=== PATIENT | female | born 1960 | race American Indian/Alaskan Native ===

== ENCOUNTER 2017-06-09 21:14 | Emergency (ER) | payer MEDICARE | END 2017-06-09 21:27 | disposition left against medical advice (07) | LOC: ED 21:14 | DX: R07.89 Other chest pain (principal); Z53.21 Procedure and treatment not carried out due to patient leaving prior to being seen by health care provider ==

== ENCOUNTER 2017-08-31 11:35 | Emergency (ER) | payer MEDICARE ==
[2017-08-31 12:02] VITALS: BP 148/89
[2017-08-31] MEDS ORDERED: ASPIRIN PO ONE (12:02)
[2017-08-31 12:54] LABS: Basophils % (Auto) 0.8 % (0.0-1.8); Eosinophils # (Auto) 0.1 K/mm3 (0.0-0.4); Eosinophils % (Auto) 1.8 % (0.0-4.3); Hemoglobin 11.1 gm/dl (10.1-14.3); Lymphocytes # (Auto) 2.4 K/mm3 (1.2-5.4); Lymphocytes % (Auto) 46.3 % (13.4-35.0); Mean Corpuscular HGB Conc 33 % (30-34); Mean Corpuscular Hemoglobin 25 pg (28-32); Mean Corpuscular Volume 76 fl (79-97); Monocytes # (Auto) 0.4 K/mm3 (0.0-0.8); Monocytes % (Auto) 7.1 % (0.0-7.3); Platelet Count 164 K/mm3 (140-440); Red Blood Count 4.47 M/mm3 (3.65-5.03); Red Cell Distribution Width 16.7 % (13.2-15.2)
[2017-08-31 13:06] LABS: Calcium 9.1 mg/dL (8.4-10.2)
--- NOTE | 2017-08-31 16:11 | Emergency Department Report ---
ED Chest Pain HPI - General Chief Complaint: Chest Pain Stated Complaint: CHEST PAIN Time Seen by Provider: 08/31/17 15:44 Source: patient Mode of arrival: Ambulatory Limitations: No Limitations - History of Present Illness Initial Comments: 56-year-old female with past medical history of cardio bypass, cardiac stent, hypertension, and CVA with residual right-sided deficits presents to the hospital with complaints of intermittent chest pain for the last 2-3 days. Pain is at the sternum and right side of chest. Reproducible with movement and palpation. Moderate in intensity. Patient states that she has not performed any heavy lifting but did recently change a bike tire. Patient has been off of blood pressure medicine since 2009 since BP has beeen running 140's systolic. Patient reported her BP prior to arrival was 220/130. Patient been feeling weak and fatigued lately and recently restarted his Synthroid thinking that would help. She denies calf tenderness, edema, leg asymmetry, recent travel, history of PE/DVT. Patient takes a baby aspirin 81 mg daily was seems to help her chest pain. She is also prescribed nitroglycerin when necessary has not taken any over the last couple days. 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 - Related Data Home Medications Medication Instructions Recorded Confirmed Last Taken Levothyroxine [Synthroid] 100 mcg PO QDAY 06/09/17 06/09/17 06/08/17 Allergies Allergy/AdvReac Type Severity Reaction Status Date / Time No Known Allergies Allergy Verified 06/09/17 07:18 Heart Score - HEART Score History: Slightly suspicious EKG: Non-specific Age: 45-65 Risk factors: > 3 risk factors or hx of atherosclerotic disease Troponin: > 3x normal limit HEART Score: 6 ED Review of Systems ROS: Stated complaint: CHEST PAIN Other details as noted in HPI Comment: All other systems reviewed and negative ED Past Medical Hx - Past Medical History Previous Medical History?: Yes Hx Hypertension: Yes Hx CVA: Yes (right side weakness) Hx Heart Attack/AMI: Yes (12 year ago) Additional medical history: hypothyroid - Surgical History Past Surgical History?: Yes Hx Coronary Stent: Yes Hx Open Heart Surgery: Yes Additional Surgical History: Quadruple bypass, - Social History Smoking Status: Never Smoker Substance Use Type: None - Medications Home Medications: Home Medications Medication Instructions Recorded Confirmed Last Taken Type Levothyroxine [Synthroid] 100 mcg PO QDAY 06/09/17 06/09/17 06/08/17 History ED Physical Exam - General Limitations: No Limitations - Other Other exam information: General: No limitations, patient is alert in no acute distress Head exam: Atraumatic, normocephalic Eyes exam: Normal appearance ENT: Moist mucous membrane, normal oropharynx Neck exam: Normal inspection, full range of motion, no meningismus nontender Respiratory exam: Clear to auscultation bilateral, no wheezes, rales, crackles Cardiovascular: Normal rate and rhythm, CABG scar. Reproducible sternal and right-sided upper chest wall tenderness Abdomen: Soft, nondistended, and nontender, with normal bowel sounds, no rebound, or guarding Extremity: Full range of motion normal inspection no deformity, no tenderness or edema Back: Normal Inspection, full range of motion, no tenderness Neurologic: Alert, oriented x3, cranial nerves intact, no motor or sensory deficit Psychiatric: normal affect, normal mood Skin: Warm, dry, intact ED Course Vital Signs 08/31/17 11:59 Temperature 97.5 F L Pulse Rate 64 Respiratory 20 Rate Blood Pressure 148/89 O2 Sat by Pulse 99 Oximetry - Consultations Consultation #1: 08/31/17 16:12 case d/w P Nelson jackie heart. agree admission is warranted. informed pt intends to s/o ama. will provided outpt appointment. 08/31/17 16:26 Zhen Damon came to speak to pt. apt given for thu the art 2:30pm JUAN score - Juan Score Age > 65: (0) No Aspirin use within the Past 7 Days: (1) Yes 3 or more CAD Risk Factors: (1) Yes 2 or more Angina events in past 24 hrs: (1) Yes Known CAD with more than 50% Stenosis: (1) Yes Elevated Cardiac Markers: (0) No ST Deviation Greater than 0.5mm: (0) No JUAN Score: 4 ED Medical Decision Making - Lab Data Result diagrams: 08/31/17 12:19 08/31/17 12:19 Lab Results 08/31/17 08/31/17 08/31/17 Range/Units 12:19 12:19 15:35 WBC 5.2 (4.5-11.0) K/mm3 RBC 4.47 (3.65-5.03) M/mm3 Hgb 11.1 (10.1-14.3) gm/dl Hct 34.0 (30.3-42.9) % MCV 76 L (79-97) fl MCH 25 L (28-32) pg MCHC 33 (30-34) % RDW 16.7 H (13.2-15.2) % Plt Count 164 (140-440) K/mm3 Lymph % (Auto) 46.3 H (13.4-35.0) % [place] % (Auto) 7.1 (0.0-7.3) % Eos % (Auto) 1.8 (0.0-4.3) % Baso % (Auto) 0.8 (0.0-1.8) % Lymph # 2.4 (1.2-5.4) K/mm3 [place] # 0.4 (0.0-0.8) K/mm3 Eos # 0.1 (0.0-0.4) K/mm3 Baso # 0.0 (0.0-0.1) K/mm3 Seg Neutrophils % 44.0 (40.0-70.0) % Seg Neutrophils # 2.3 (1.8-7.7) K/mm3 Sodium 141 (137-145) mmol/L Potassium 4.5 (3.6-5.0) mmol/L Chloride 103.9 (98-107) mmol/L Carbon Dioxide 28 (22-30) mmol/L Anion Gap 14 mmol/L BUN 21 H (7-17) mg/dL Creatinine 1.2 (0.7-1.2) mg/dL Estimated GFR 57 ml/min BUN/Creatinine Ratio 18 % Glucose 96 (65-100) mg/dL Calcium 9.1 (8.4-10.2) mg/dL Troponin T 0.013 < 0.010 (0.00-0.029) ng/mL - EKG Data -: EKG Interpreted by Me (anterolateral infarct, inferior infarct) EKG shows normal: sinus rhythm, axis (qrs 12), QRS complexes (101), ST-T waves ( lat tinv) Rate: bradycardia (58) - EKG Data When compared to previous EKG there are: no significant change - Radiology Data Radiology results: image reviewed (cxr: naf read by me) - Medical Decision Making Chest pain Reproducible likely musculoskeletal in origin, however patient's significant cardiac history, risk factors, and no reliable follow-up. Patient will be signing out AGAINST MEDICAL ADVICE today. I explained that I cannot fully say her heart is okay without at least a stress test. It is encouraging a patient has unchanged EKG and negative cardiac enzymes. She was seen by cardiology and a follow-up referral appointment scheduled in 2 days. htn - Differential Diagnosis costochondritis, muscle strain, PE, MD, possible angina Critical Care Time: No Critical care attestation.: If time is entered above; I have spent that time in minutes in the direct care of this critically ill patient, excluding procedure time. ED Disposition Clinical Impression: Chest wall tenderness, Hx of CABG Disposition: OP ADMIT IP TO THIS HOSP Is pt being admited?: No Does the pt Need Aspirin: No Condition: Stable Instructions: Chest Pain (ED) Additional Instructions: Admission was recommended for stress testing to further evaluate heart. You are signing out AGAINST MEDICAL ADVICE because I am unable to rule out Worsening heart disease that can lead to heart attack and sudden . Please follow-up with the machine veneer repairer as scheduled on the night. Please return to the ER if symptoms worsen as indicated on your discharge instructions Referrals: DENISE ARAIZA MD [Staff Physician] - 09/02/17 2:30 pm (machine veneer repairer) YAMINI JOHNSON MD [Staff Physician] - 3-5 Days (Primary care doctor) [facility] [Provider Group] - 3-5 Days (Primary care clinic) Forms: AMA Form Time of Disposition: 16:40
--- NOTE | 2017-08-31 19:02 | XRay Report ---
FINAL REPORT PROCEDURE: XR CHEST ROUTINE 2V TECHNIQUE: PA and lateral chest radiographs were obtained. CPT 43114 HISTORY: Chest pain. COMPARISON: No prior studies are available for comparison. FINDINGS: Heart: Mild cardiomegaly. Mediastinum/Vessels: Aortic tortuosity. Lungs/Pleural space: Normal. Bony thorax: Sternotomy. Mild multilevel degenerative changes of spine. Other: IMPRESSION: Mild cardiomegaly. Aortic tortuosity. No radiographic evidence of acute cardiopulmonary disease.
== END 2017-08-31 17:02 | disposition left against medical advice (07) ==
LOC: ED 11:35
DX: R07.89 Other chest pain (principal); I25.2 Old myocardial infarction; I10 Essential (primary) hypertension; Z86.73 Personal history of transient ischemic attack (TIA), and cerebral infarction without residual deficits; Z95.1 Presence of aortocoronary bypass graft
CPT/HCPCS: 36415; 71046; 80048; 84484; 85025; 93005; 93010; 99284

== ENCOUNTER 2020-10-19 08:09 | Observation (INO) | payer MEDICARE ==
[2020-10-19] MEDS ORDERED: NITROGLYCERIN 2% OINT 1 GM TP ONE (09:05)
[2020-10-19] MEDS ORDERED: fentaNYL 100 MCG/2 ML INJ IV ONE (09:05)
[2020-10-19] MEDS ORDERED: ONDANSETRON 4 MG/2 ML INJ IV ONE (09:05)
[2020-10-19] MEDS ORDERED: ASPIRIN 325 MG TAB PO ONE (09:06)
--- NOTE | 2020-10-19 09:11 | Emergency Department Report ---
HPI - General Chief Complaint: Chest Pain Time Seen by Provider: 10/19/20 08:51 - HPI HPI: Room 2 The patient is a 59-year-old female present with a chief complaint of chest pain. Patient states for the past 2 days she is substernal/right-sided chest p ressure that has been constant in nature associated with shortness of breath, nausea/vomiting and diaphoresis. Patient states she has noticed swelling to both feet and she admits to orthopnea for 2 days. Patient currently gets her chest pressure score of 8/10. Patient states her last stress test and cardiac catheterization occurred approximate 1 year ago. Patient states she was told she had some type of blockage 1 year ago ED Past Medical Hx - Past Medical History Hx Hypertension: Yes (Not taking meds/lisinopril) Hx CVA: Yes (2006) Hx Heart Attack/AMI: Yes (12 year ago; 7 ID's) Additional medical history: hypothyroid - Surgical History Hx Coronary Stent: Yes Hx Open Heart Surgery: Yes Additional Surgical History: Quadruple bypass, 2 heart stents - Family History Family history: no significant - Social History Smoking Status: Never Smoker Substance Use Type: None (Denies illicit drug use) - Medications Home Medications: Home Medications Medication Instructions Recorded Confirmed Last Taken Type Levothyroxine [Synthroid] 100 mcg PO QDAY 06/09/17 06/09/17 06/08/17 History ED Review of Systems ROS: Stated complaint: chest pains Other details as noted in HPI Constitutional: diaphoresis Eyes: denies: eye pain ENT: denies: throat pain Respiratory: shortness of breath Cardiovascular: chest pain, palpitations Endocrine: no symptoms reported Gastrointestinal: nausea, vomiting Genitourinary: denies: dysuria Musculoskeletal: denies: back pain Neurological: denies: headache Physical Exam - Physical Exam Vital Signs: Vital Signs 10/19/20 08:27 Temperature 98.2 F Pulse Rate 65 Respiratory 18 Rate Blood Pressure 172/110 [Left] O2 Sat by Pulse 100 Oximetry Physical Exam: GENERAL: The patient is well-developed well-nourished female lying on stretcher not appearing to be in acute distress. [] HEENT: Normocephalic. Atraumatic. Extraocular motions are intact. Patient has moist mucous membranes. NECK: Supple. Trachea midline CHEST/LUNGS: Clear to auscultation. There is no respiratory distress noted. HEART/CARDIOVASCULAR: Regular. There is no tachycardia. There is no gallop rub or murmur. ABDOMEN: Abdomen is soft, nontender. Patient has normal bowel sounds. There is no abdominal distention. SKIN: There is no rash. There is no pitting peripheral edema appreciated. Ther e is no diaphoresis. NEURO: The patient is awake, alert, and oriented. The patient is cooperative. The patient has no focal neurologic deficits. The patient has normal speech MUSCULOSKELETAL: There is no evidence of acute injury. ED Course Vital Signs 10/19/20 08:27 Temperature 98.2 F Pulse Rate 65 Respiratory 18 Rate Blood Pressure 172/110 [Left] O2 Sat by Pulse 100 Oximetry ED Medical Decision Making - Lab Data Result diagrams: 10/19/20 09:07 10/19/20 09:07 - EKG Data -: EKG Interpreted by Me EKG shows normal: sinus rhythm Rate: normal - EKG Data When compared to previous EKG there are: no significant change Interpretation: unchanged when compared t (08/31/2017) - Radiology Data Radiology results: report reviewed (Chest x-ray), image reviewed (Chest x-ray) interpreted by me: Chest [id number]. No focal infiltrate, no pneumothorax [facility] [address] [place] [address] XRay Report Signed Patient: JESUS CAMERON MR#: [id number] : 1960 Acct:[id number] Age/Sex: 59 / F ADM Date: 10/19/20 Loc: ED Attending Dr: Ordering Physician: ELIZABETH WING MD Date of Service: 10/19/20 Procedure(s): XR chest 1V ap Accession Number(s): [id number] cc: ELIZABETH WING MD Fluoro Time In Minutes: CHEST 1 VIEW INDICATION: chest pain. COMPARISON: 06/09/2017 FINDINGS: Support devices: None. Heart: Cardiomegaly is noted. There has been prior sternotomy. Lungs/Pleura: No acute pulmonary or pleural findings. IMPRESSION: 1. No acute pulmonary or pleural findings. 2. Enlargement of the cardiac silhouette, this is new since the prior CT from 06/09/2017. Signer Name: Uriah Pimentel MD Signed: 10/19/2020 9:44 AM Workstation Name: [id number] Transcribed By: KEITH Dictated By: Uriah Pimentel MD Electronically Authenticated By: Uriah Pimentel MD Signed Date/Time: 10/19/20943 DD/ 1 TD/TT: Print Cancel - Differential Diagnosis ACS, pericarditis, GERD, CHF exacerbation Critical care attestation.: If time is entered above; I have spent that time in minutes in the direct care of this critically ill patient, excluding procedure time. ED Disposition Clinical Impression: Chest pain, CHF (congestive heart failure) Disposition: OP ADMIT IP TO THIS HOSP Is pt being admited?: Yes Does the pt Need Aspirin: Yes Condition: Fair Instructions: Nonspecific Chest Pain, Adult Time of Disposition: 10:15 (Hospitalist paged (Dr Becerra)) Heart Score - HEART Score History: Moderately suspicious EKG: Non-specific Age: 45-65 Risk factors: 1-2 risk factors Troponin: < normal limit HEART Score: 4 - EKG Read Time Time EKG Completed: 08:19 EKG Read Time: 08:24
[2020-10-19 09:26] LABS: Basophils % (Auto) 0.9 % (0.0-1.8); Eosinophils # (Auto) 0.1 K/mm3 (0.0-0.4); Eosinophils % (Auto) 1.4 % (0.0-4.3); Hematocrit 39.3 % (30.3-42.9); Hemoglobin 12.9 gm/dl (10.1-14.3); Lymphocytes # (Auto) 1.5 K/mm3 (1.2-5.4); Lymphocytes % (Auto) 29.8 % (13.4-35.0); Mean Corpuscular HGB Conc 33 % (30-34); Mean Corpuscular Volume 79 fl (79-97); Monocytes # (Auto) 0.4 K/mm3 (0.0-0.8); Monocytes % (Auto) 8.1 % (0.0-7.3); Platelet Count 215 K/mm3 (140-440); Red Cell Distribution Width 17.3 % (13.2-15.2)
[2020-10-19 09:48] LABS: INR 1.21 (0.87-1.13)
--- NOTE | 2020-10-19 09:48 | XRay Report ---
CHEST 1 VIEW INDICATION: chest pain. COMPARISON: 06/09/2017 FINDINGS: Support devices: None. Heart: Cardiomegaly is noted. There has been prior sternotomy. Lungs/Pleura: No acute pulmonary or pleural findings. IMPRESSION: 1. No acute pulmonary or pleural findings. 2. Enlargement of the cardiac silhouette, this is new since the prior CT from 06/09/2017. Signer Name: Uriah Pimentel MD Signed: 10/19/2020 9:44 AM Workstation Name: [id number]
[2020-10-19 09:49] LABS: Partial Thromboplastin Time 25.6 Sec. (24.2-36.6)
[2020-10-19 10:13] LABS: Calcium 9.1 mg/dL (8.4-10.2); Creatine Kinase MB 6.2 ng/mL (0.0-4.0)
[2020-10-19] MEDS ORDERED: FUROSEMIDE 40 MG/4 ML INJ IV ONE (10:15)
[2020-10-19 10:22] LABS: Free T4 (Free Thyroxine) 0.85 ng/dL (0.76-1.46)
[2020-10-19] MEDS ORDERED: hydrALAZINE 20 MG/1 ML INJ IV PRN (11:25)
--- NOTE | 2020-10-19 11:30 | History and Physical Report ---
History of Present Illness Date of examination: 10/19/20 Date of admission: 10/19/20 10:18 Chief complaint: Chest pain shortness of breath History of present illness: 59-year-old female with past medical history of hypertension, CVA, history of heart attack and hypothyroidism was brought to the emergency room because of chest pain for the past 2 days which is substernal/right-sided chest pressure that has been constant in nature associated with shortness of breath, nausea/vomiting and diaphoresis. Patient states she has noticed swelling to both feet and she admits to orthopnea for 2 days. Patient currently gets her chest pressure score of 8/10. Patient states her last stress test and cardiac catheterization occurred approximate 1 year ago. Patient states she was told she had some type of blockage 1 year ago Past History Past Medical History: acute SC, hypertension, hypothyroidism, stroke Medications and Allergies Allergies Allergy/AdvReac Type Severity Reaction Status Date / Time No Known Allergies Allergy Verified 06/09/17 07:18 Home Medications Medication Instructions Recorded Confirmed Last Taken Type Levothyroxine [Synthroid] 100 mcg PO QDAY 06/09/17 06/09/17 06/08/17 History Review of Systems Cardiovascular: chest pain, orthopnea, edema, shortness of breath, dyspnea on exertion Respiratory: shortness of breath, dyspnea on exertion Exam - Constitutional Vitals: Temp Pulse Resp BP Pulse Ox 98.2 F 93 H 14 173/119 94 10/19/20 08:27 10/19/20 11:17 10/19/20 11:17 10/19/20 11:17 10/19/20 11:17 General appearance: Present: no acute distress, well-nourished - EENT Eyes: Present: PERRL ENT: hearing intact, clear oral mucosa - Neck Neck: Present: supple, normal ROM - Respiratory Respiratory effort: normal Respiratory: bilateral: rales - Cardiovascular Heart Sounds: Present: S1 & S2. Absent: rub, click - Extremities Extremities: pulses symmetrical Extremity abnormal: edema Peripheral Pulses: within normal limits - Abdominal General gastrointestinal: Present: soft, non-tender, non-distended, normal bowel sounds Female genitourinary: Present: normal - Integumentary Integumentary: Present: clear, warm, dry - Musculoskeletal Musculoskeletal: gait normal, strength equal bilaterally - Psychiatric Psychiatric: appropriate mood/affect, intact judgment & insight - Neurologic Neurologic: CNII-XII intact, moves all extremities HEART Score - HEART Score EKG: Non-specific Age: 45-65 Risk factors: 1-2 risk factors Troponin: Troponin T 0.018 ng/mL (0.00-0.029) 10/19/20 09:07 Troponin: < normal limit Results - Labs CBC & Chem 7: 10/19/20 09:07 10/19/20 09:07 Labs: Laboratory Last Values WBC 4.9 K/mm3 (4.5-11.0) 10/19/20 09:07 RBC 5.00 M/mm3 (3.65-5.03) 10/19/20 09:07 Hgb 12.9 gm/dl (10.1-14.3) 10/19/20 09:07 Hct 39.3 % (30.3-42.9) 10/19/20 09:07 MCV 79 fl (79-97) 10/19/20 09:07 MCH 26 pg (28-32) L 10/19/20 09:07 MCHC 33 % (30-34) 10/19/20 09:07 RDW 17.3 % (13.2-15.2) H 10/19/20 09:07 Plt Count 215 K/mm3 (140-440) 10/19/20 09:07 Lymph % (Auto) 29.8 % (13.4-35.0) 10/19/20 09:07 [place] % (Auto) 8.1 % (0.0-7.3) H 10/19/20 09:07 Eos % (Auto) 1.4 % (0.0-4.3) 10/19/20 09:07 Baso % (Auto) 0.9 % (0.0-1.8) 10/19/20 09:07 Lymph # (Auto) 1.5 K/mm3 (1.2-5.4) 10/19/20 09:07 [place] # (Auto) 0.4 K/mm3 (0.0-0.8) 10/19/20 09:07 Eos # (Auto) 0.1 K/mm3 (0.0-0.4) 10/19/20 09:07 Baso # (Auto) 0.0 K/mm3 (0.0-0.1) 10/19/20 09:07 Seg Neutrophils % 59.8 % (40.0-70.0) 10/19/20 09:07 Seg Neutrophils # 3.0 K/mm3 (1.8-7.7) 10/19/20 09:07 PT 15.9 Sec. (12.2-14.9) H 10/19/20 09:07 INR 1.21 (0.87-1.13) H 10/19/20 09:07 APTT 25.6 Sec. (24.2-36.6) 10/19/20 09:07 Sodium 139 mmol/L (137-145) 10/19/20 09:07 Potassium 4.0 mmol/L (3.6-5.0) 10/19/20 09:07 Chloride 104.0 mmol/L (98-107) 10/19/20 09:07 Carbon Dioxide 23 mmol/L (22-30) 10/19/20 09:07 Anion Gap 16 mmol/L 10/19/20 09:07 BUN 20 mg/dL (7-17) H 10/19/20 09:07 Creatinine 1.3 mg/dL (0.6-1.2) H 10/19/20 09:07 Estimated GFR 51 ml/min 10/19/20 09:07 BUN/Creatinine Ratio 15 % 10/19/20 09:07 Glucose 121 mg/dL (65-100) H 10/19/20 09:07 Calcium 9.1 mg/dL (8.4-10.2) 10/19/20 09:07 Total Creatine Kinase 219 units/L (30-135) H 10/19/20 09:07 CK-MB (CK-2) 6.2 ng/mL (0.0-4.0) H 10/19/20 09:07 CK-MB (CK-2) Rel Index 2.8 (0-4) 10/19/20 09:07 Troponin T 0.018 ng/mL (0.00-0.029) 10/19/20 09:07 NT-Pro-B Natriuret Pep 4381 pg/mL (0-900) H 10/19/20 09:07 TSH 44.800 mlU/mL (0.270-4.200) H 10/19/20 09:07 Free T4 0.85 ng/dL (0.76-1.46) 10/19/20 09:07 - Imaging and Cardiology Chest x-ray: report reviewed Assessment and Plan VTE prophylaxis?: Chemical Plan of care discussed with patient/family: Yes - Patient Problems (1) CHF (congestive heart failure) Current Visit: Yes Status: Acute Plan to address problem: Admit the patient to the medical floor telemetry. Put the patient on CHF pathway. Cardiac diet. Lasix 40 mg IV every 12 hours. Fluid restriction. Maintain intake output. Echocardiogram. Consult cardiology (2) Chest pain Current Visit: Yes Status: Acute Plan to address problem: Aspirin 325 mg p.o. daily. Lipitor 40 mg p.o. daily. Nitroglycerin as needed. Lipid panel. we will do the serial cardiac enzyme. Echocardiogram. Consult cardiology for further evaluation and treatment. (3) Hypertension Current Visit: Yes Status: Acute Plan to address problem: Lisinopril 2.5 mg p.o. daily. Hydralazine 10 mg IV every 6 hours as needed. Monitor the blood pressure closely (4) CVA (cerebral vascular accident) Current Visit: Yes Status: Acute Plan to address problem: Stable. We will continue aspirin 325 mg p.o. daily. Lipitor 40 mg p.o. daily. (5) Coronary artery disease Current Visit: Yes Status: Acute Plan to address problem: Aspirin 325 mg p.o. daily. Lipitor 40 mg p.o. daily. Echocardiogram. Will consult cardiology for evaluation and treatment (6) Hypothyroidism Current Visit: Yes Status: Acute Plan to address problem: Synthroid 100 mcg p.o. daily. Outpatient follow-up with endocrinology (7) DVT prophylaxis Current Visit: Yes Status: Acute Plan to address problem: Heparin 5000 units subcu every 8 hours for DVT prophylaxis. Protonix 40 mg p.o. daily for GI prophylaxis. Patient is a full code
[2020-10-19] MEDS ORDERED: NITROGLYCERIN 0.4 MG TAB SUBL SL PRN (11:34)
[2020-10-19] MEDS ORDERED: ACETAMINOPHEN 325 MG TAB PO PRN (11:34)
[2020-10-19 15:20] LABS: Basophils # (Auto) 0.1 K/mm3 (0.0-0.1); Basophils % (Auto) 1.6 % (0.0-1.8); Eosinophils # (Auto) 0.1 K/mm3 (0.0-0.4); Eosinophils % (Auto) 1.8 % (0.0-4.3); Hematocrit 39.5 % (30.3-42.9); Lymphocytes # (Auto) 2.1 K/mm3 (1.2-5.4); Lymphocytes % (Auto) 38.3 % (13.4-35.0); Mean Corpuscular HGB Conc 33 % (30-34); Mean Corpuscular Volume 78 fl (79-97); Monocytes # (Auto) 0.4 K/mm3 (0.0-0.8); Monocytes % (Auto) 7.9 % (0.0-7.3); Platelet Count 203 K/mm3 (140-440); Red Blood Count 5.05 M/mm3 (3.65-5.03); Red Cell Distribution Width 17.6 % (13.2-15.2)
[2020-10-19] MEDS: HEPARIN 5,000 UNIT/1 ML VIAL SUB-Q SCH ×2 (15:34→21:41)
[2020-10-19 15:46] LABS: Calcium 9.3 mg/dL (8.4-10.2); Chol/HDL Ratio 4.73 %
[2020-10-19] MEDS: FUROSEMIDE 40 MG/4 ML INJ IV SCH (17:05)
--- NOTE | 2020-10-19 18:15 | Electrocardiograph Report ---
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
[2020-10-19] MEDS: traMADol 50 MG TAB PO PRN (18:51)
[2020-10-20] MEDS: LEVOTHYROXINE 100 MCG TAB PO SCH (05:09)
[2020-10-20] MEDS: HEPARIN 5,000 UNIT/1 ML VIAL SUB-Q SCH ×3 (05:10→22:47)
[2020-10-20] MEDS: FUROSEMIDE 40 MG/4 ML INJ IV SCH ×3 (05:28→17:20)
[2020-10-20] MEDS: ASPIRIN EC 325 MG TAB PO SCH (10:33)
[2020-10-20] MEDS: LISINOPRIL 5 MG TAB PO SCH (10:33)
[2020-10-20] MEDS: PANTOPRAZOLE 40 MG TAB PO SCH (10:33)
--- NOTE | 2020-10-20 11:38 | Consultation ---
History of Present Illness Consult date: 10/20/20 Consult reason: chest pain History of present illness: 59-year-old female with past medical history of CAD s/p CABG, ischemic cardiomypoathy, hypertension, CVA, and hypothyroidism was brought to the emergency room because of chest pain for the past 2 days which is substernal/right-sided chest pressure that has been constant in nature associate d with shortness of breath, nausea/vomiting and diaphoresis. Patient states she has noticed swelling to both feet and she admits to orthopnea for 2 days. Patient reports she had not been compliant with her outpatient prescribed cardiac medications. Her BNP level was elevated but chest Xray is not suggestive of decompensated CHF. Troponins have been unremarkable. ECG reveals SR with prior anterior IN Echocardiogram done yesterday revealed EF of 15%. [facility] 11/11/19 revealed severe [place] vessel CAD with patent CRISTOBAL to LAD with diffuse distal LAD disease, patent HYMAN to OM with 100% occulsion of OM distal to graft, patent radial grafts to PDA and diagonal. Medical therapy was recommended at that time. Past History Past Medical History: acute IN, hypertension, hypothyroidism, stroke Past Surgical History: CABG Social history: denies: smoking Family history: hypertension Medications and Allergies Allergies Allergy/AdvReac Type Severity Reaction Status Date / Time No Known Allergies Allergy Verified 06/09/17 07:18 Home Medications Medication Instructions Recorded Confirmed Last Taken Type Levothyroxine [Synthroid] 100 mcg PO QDAY 06/09/17 10/19/20 06/08/17 History Aspirin [Aspirin BABY CHEW TAB] 81 mg PO DAILY 10/19/20 10/19/20 Unknown History Lisinopril [Zestril TAB] 2.5 mg PO QDAY 10/19/20 10/19/20 Unknown History Active Meds: Active Medications Acetaminophen (Acetaminophen 325 Mg Tab) 650 mg PO Q6H PRN PRN Reason: Pain, Mild (1-3) Aspirin (Aspirin Ec 325 Mg Tab) 325 mg PO QDAY [facility] Last Admin: 10/20/20 10:33 Dose: 325 mg Documented by: Atorvastatin Calcium (Atorvastatin 40 Mg Tab) 40 mg PO QHS [facility] Last Admin: 10/19/20 21:41 Dose: 40 mg Documented by: Furosemide (Furosemide 40 Mg/4 Ml Inj) 40 mg IV BID@0600,1800 [facility] Last Admin: 10/20/20 05:28 Dose: Not Given Documented by: Heparin Sodium (Porcine) (Heparin 5,000 Unit/1 Ml Vial) 5,000 unit SUB-Q Q8HR [facility] Last Admin: 10/20/20 05:10 Dose: 5,000 unit Documented by: Hydralazine HCl (Hydralazine 20 Mg/1 Ml Inj) 10 mg IV Q6H PRN PRN Reason: htn Levothyroxine Sodium (Levothyroxine 100 Mcg Tab) 100 mcg PO DAILY@0600 [facility] Last Admin: 10/20/20 05:09 Dose: 100 mcg Documented by: Lisinopril (Lisinopril 5 Mg Tab) 2.5 mg PO QDAY [facility] Last Admin: 10/20/20 10:33 Dose: 2.5 mg Documented by: Nitroglycerin (Nitroglycerin 0.4 Mg Tab Subl) 0.4 mg SL Q5M PRN PRN Reason: Chest Pain Pantoprazole Sodium (Pantoprazole 40 Mg Tab) 40 mg PO QDAC [facility] Last Admin: 10/20/20 10:33 Dose: 40 mg Documented by: Sodium Chloride (Sodium Chloride 0.9% 10 Ml Flush Syringe) 10 ml IV PRN PRN PRN Reason: LINE FLUSH Tramadol HCl (Tramadol 50 Mg Tab) 50 mg PO Q6H PRN PRN Reason: Pain, Moderate (4-6) Last Admin: 10/19/20 18:51 Dose: 50 mg Documented by: Review of Systems All systems: negative (per hpi) Physical Examination Vital Signs Temp Pulse Resp BP Pulse Ox 98.2 F 65 18 172/110 100 10/19/20 08:27 10/19/20 08:27 10/19/20 08:27 10/19/20 08:27 10/19/20 08:27 General appearance: no acute distress Neck: Positive: neck supple Cardiac: Positive: Reg Rate and Rhythm Lungs: Positive: Decreased Breath Sounds Results 10/19/20 14:43 10/19/20 14:43 Lipids 10/19/20 Range/Units 14:43 Triglycerides 62 (2-149) mg/dL Cholesterol 194 (50-199) mg/dL HDL Cholesterol 41 (40-59) mg/dL Cholesterol/HDL Ratio 4.73 % CBC 10/19/20 Range/Units 14:43 WBC 5.5 (4.5-11.0) K/mm3 RBC 5.05 H (3.65-5.03) M/mm3 Hgb 13.0 (10.1-14.3) gm/dl Hct 39.5 (30.3-42.9) % Plt Count 203 (140-440) K/mm3 Lymph # (Auto) 2.1 (1.2-5.4) K/mm3 [place] # (Auto) 0.4 (0.0-0.8) K/mm3 Eos # (Auto) 0.1 (0.0-0.4) K/mm3 Baso # (Auto) 0.1 (0.0-0.1) K/mm3 Comprehensive Metabolic Panel 10/19/20 Range/Units 14:43 Sodium 142 (137-145) mmol/L Potassium 3.9 (3.6-5.0) mmol/L Chloride 104.8 (98-107) mmol/L Carbon Dioxide 24 (22-30) mmol/L BUN 20 H (7-17) mg/dL Creatinine 1.3 H (0.6-1.2) mg/dL Glucose 121 H (65-100) mg/dL Calcium 9.3 (8.4-10.2) mg/dL Assessment and Plan Acute on chronic systolic heart failure Ischemic cardiomyopathy with EF 15% CAD s/p CABG. [facility] 11/11/19 revealed severe [place] vessel CAD with patent CRISTOBAL to LAD with diffuse distal LAD disease, patent HYMAN to OM with 100% occulsion of OM distal to graft, patent radial grafts to PDA and diagonal. Medical therapy was recommended at that time. Htn Recommend: Continue IV diuresis Titrate anti-anginal therapy and GDMT for ischemic cardiomyopathy as tolerated - restart toprol
--- NOTE | 2020-10-20 12:21 | Progress Note ---
Assessment and Plan Assessment and plan: Assessment and Plan VTE prophylaxis?: Chemical Plan of care discussed with patient/family: Yes - Patient Problems (1) CHF (congestive heart failure) Current Visit: Yes Status: Acute Plan to address problem: Admit the patient to the medical floor telemetry. Put the patient on CHF pathway. Cardiac diet. Lasix 40 mg IV every 12 hours. Fluid restriction. Maintain intake output. Echocardiogram. Consult cardiology (2) Chest pain Current Visit: Yes Status: Acute Plan to address problem: Aspirin 325 mg p.o. daily. Lipitor 40 mg p.o. daily. Nitroglycerin as needed. Lipid panel. we will do the serial cardiac enzyme. Echocardiogram. Consult cardiology for further evaluation and treatment. (3) Hypertension Current Visit: Yes Status: Acute Plan to address problem: Lisinopril 2.5 mg p.o. daily. Hydralazine 10 mg IV every 6 hours as needed. M onitor the blood pressure closely (4) CVA (cerebral vascular accident) Current Visit: Yes Status: Acute Plan to address problem: Stable. We will continue aspirin 325 mg p.o. daily. Lipitor 40 mg p.o. daily. (5) Coronary artery disease Current Visit: Yes Status: Acute Plan to address problem: Aspirin 325 mg p.o. daily. Lipitor 40 mg p.o. daily. Echocardiogram. Will consult cardiology for evaluation and treatment (6) Hypothyroidism Current Visit: Yes Status: Acute Plan to address problem: Synthroid 100 mcg p.o. daily. Outpatient follow-up with endocrinology (7) DVT prophylaxis Current Visit: Yes Status: Acute Plan to address problem: Heparin 5000 units subcu every 8 hours for DVT prophylaxis. Protonix 40 mg p.o. daily for GI prophylaxis. Patient is a full code 10/20/20 patient feels better. Decreased shortness of breath. No chest pain. Patient is seen and evaluated by cardiology.Echocardiogram done yesterday revealed EF of 15%. [facility] 11/11/19 revealed severe [place] vessel CAD with patent CRISTOBAL to LAD with diffuse distal LAD disease, patent HYMAN to OM with 100% occulsion of OM distal to graft, patent radial grafts to PDA and diagonal. Continue Lasix 40 mg IV every 12 hours. Metoprolol XL 25 mg p.o. daily. Continue current management. Discharge planning morning if cleared by cardiolog y. 59-year-old female with past medical history of hypertension, CVA, history of heart attack and hypothyroidism was brought to the emergency room because of chest pain for the past 2 days which is substernal/right-sided chest pressure that has been constant in nature associated with shortness of breath, nausea/vomiting and diaphoresis. Patient states she has noticed swelling to both feet and she admits to orthopnea for 2 days. Patient currently gets her chest pressure score of 8/10. Echocardiogram done yesterday revealed EF of 15%. [facility] 11/11/19 revealed severe [place] vessel CAD with patent CRISTOBAL to LAD with diffuse distal LAD disease, patent HYMAN to OM with 100% occulsion of OM distal to graft, patent radial grafts to PDA and diagonal. Medical therapy was recommended at that time. - Patient Problems (1) CHF (congestive heart failure) Current Visit: Yes Status: Acute (2) Chest pain Current Visit: Yes Status: Acute (3) Hypertension Current Visit: Yes Status: Acute (4) CVA (cerebral vascular accident) Current Visit: Yes Status: Acute (5) Coronary artery disease Current Visit: Yes Status: Acute (6) Hypothyroidism Current Visit: Yes Status: Acute (7) DVT prophylaxis Current Visit: Yes Status: Acute History Interval history: Patient seen and examined. Lab and medication reviewed Patient feels better. Decreased shortness of breath. No chest pain. Hospitalist Physical - Constitutional Vitals: Temp Pulse Resp BP Pulse Ox 97.4 F L 62 18 137/83 100 10/20/20 08:25 10/20/20 10:00 10/20/20 08:25 10/20/20 08:25 10/20/20 08:25 General appearance: Present: no acute distress - EENT Eyes: Present: PERRL, EOM intact ENT: hearing intact, clear oral mucosa, dentition normal - Neck Neck: Present: supple, normal ROM - Respiratory Respiratory effort: normal Respiratory: bilateral: diminished - Extremities Extremities: no ischemia Extremity abnormal: edema Peripheral Pulses: within normal limits - Abdominal General gastrointestinal: soft, non-tender, normal bowel sounds - Integumentary Integumentary: Present: clear, warm, dry - Psychiatric Psychiatric: appropriate mood/affect, intact judgment & insight - Neurologic Neurologic: CNII-XII intact, moves all extremities HEART Score - HEART Score EKG: Non-specific Age: 45-65 Risk factors: 1-2 risk factors Troponin: Troponin T 0.015 ng/mL (0.00-0.029) 10/19/20 14:43 Troponin: < normal limit Results - Labs CBC & Chem 7: 10/19/20 14:43 10/19/20 14:43 Labs: Laboratory Last Values WBC 5.5 K/mm3 (4.5-11.0) 10/19/20 14:43 RBC 5.05 M/mm3 (3.65-5.03) H 10/19/20 14:43 Hgb 13.0 gm/dl (10.1-14.3) 10/19/20 14:43 Hct 39.5 % (30.3-42.9) 10/19/20 14:43 MCV 78 fl (79-97) L 10/19/20 14:43 MCH 26 pg (28-32) L 10/19/20 14:43 MCHC 33 % (30-34) 10/19/20 14:43 RDW 17.6 % (13.2-15.2) H 10/19/20 14:43 Plt Count 203 K/mm3 (140-440) 10/19/20 14:43 Lymph % (Auto) 38.3 % (13.4-35.0) H 10/19/20 14:43 [place] % (Auto) 7.9 % (0.0-7.3) H 10/19/20 14:43 Eos % (Auto) 1.8 % (0.0-4.3) 10/19/20 14:43 Baso % (Auto) 1.6 % (0.0-1.8) 10/19/20 14:43 Lymph # (Auto) 2.1 K/mm3 (1.2-5.4) 10/19/20 14:43 [place] # (Auto) 0.4 K/mm3 (0.0-0.8) 10/19/20 14:43 Eos # (Auto) 0.1 K/mm3 (0.0-0.4) 10/19/20 14:43 Baso # (Auto) 0.1 K/mm3 (0.0-0.1) 10/19/20 14:43 Seg Neutrophils % 50.4 % (40.0-70.0) 10/19/20 14:43 Seg Neutrophils # 2.8 K/mm3 (1.8-7.7) 10/19/20 14:43 PT 15.9 Sec. (12.2-14.9) H 10/19/20 09:07 INR 1.21 (0.87-1.13) H 10/19/20 09:07 APTT 25.6 Sec. (24.2-36.6) 10/19/20 09:07 Sodium 142 mmol/L (137-145) 10/19/20 14:43 Potassium 3.9 mmol/L (3.6-5.0) 10/19/20 14:43 Chloride 104.8 mmol/L (98-107) 10/19/20 14:43 Carbon Dioxide 24 mmol/L (22-30) 10/19/20 14:43 Anion Gap 17 mmol/L 10/19/20 14:43 BUN 20 mg/dL (7-17) H 10/19/20 14:43 Creatinine 1.3 mg/dL (0.6-1.2) H 10/19/20 14:43 Estimated GFR 51 ml/min 10/19/20 14:43 BUN/Creatinine Ratio 15 % 10/19/20 14:43 Glucose 121 mg/dL (65-100) H 10/19/20 14:43 Calcium 9.3 mg/dL (8.4-10.2) 10/19/20 14:43 Total Creatine Kinase 219 units/L (30-135) H 10/19/20 09:07 CK-MB (CK-2) 6.2 ng/mL (0.0-4.0) H 10/19/20 09:07 CK-MB (CK-2) Rel Index 2.8 (0-4) 10/19/20 09:07 Troponin T 0.015 ng/mL (0.00-0.029) 10/19/20 14:43 NT-Pro-B Natriuret Pep 4381 pg/mL (0-900) H 10/19/20 09:07 Triglycerides 62 mg/dL (2-149) 10/19/20 14:43 Cholesterol 194 mg/dL (50-199) 10/19/20 14:43 LDL Cholesterol Direct 157 mg/dL (50-130) H 10/19/20 14:43 HDL Cholesterol 41 mg/dL (40-59) 10/19/20 14:43 Cholesterol/HDL Ratio 4.73 % 10/19/20 14:43 TSH 44.800 mlU/mL (0.270-4.200) H 10/19/20 09:07 Free T4 0.85 ng/dL (0.76-1.46) 10/19/20 09:07 - Imaging and Cardiology Chest x-ray: report reviewed Gorman/IV: Voiding Method Toilet Active Medications - Current Medications Current Medications: Generic Name Dose Route Start Last Admin Trade Name Freq PRN Reason Stop Dose Admin Acetaminophen 650 mg 10/19/20 11:34 Acetaminophen 325 Mg Tab PO Q6H PRN Pain, Mild (1-3) Aspirin 325 mg 10/20/20 10:00 10/20/20 10:33 Aspirin Ec 325 Mg Tab PO 325 mg QDAY RENALDO Administration Atorvastatin Calcium 40 mg 10/19/20 22:00 10/19/20 21:41 Atorvastatin 40 Mg Tab PO 40 mg QHS RENALDO Administration Furosemide 40 mg 10/19/20 18:00 10/20/20 05:28 Furosemide 40 Mg/4 Ml Inj IV Not Given BID@0600,1800 [facility] Heparin Sodium (Porcine) 5,000 unit 10/19/20 14:00 10/20/20 05:10 Heparin 5,000 Unit/1 Ml Vial SUB-Q 5,000 unit Q8HR RENALDO Administration Hydralazine HCl 10 mg 10/19/20 11:25 Hydralazine 20 Mg/1 Ml Inj IV Q6H PRN htn Levothyroxine Sodium 100 mcg 10/20/20 06:00 10/20/20 05:09 Levothyroxine 100 Mcg Tab PO 100 mcg DAILY@0600 RENALDO Administration Lisinopril 2.5 mg 10/20/20 10:00 10/20/20 10:33 Lisinopril 5 Mg Tab PO 2.5 mg QDAY RENALDO Administration Metoprolol Succinate 25 mg 10/20/20 12:00 Metoprolol Succinate Xl 25 Mg Tab PO QDAY RENALDO Nitroglycerin 0.4 mg 10/19/20 11:34 Nitroglycerin 0.4 Mg Tab Subl SL Q5M PRN Chest Pain Pantoprazole Sodium 40 mg 10/20/20 07:30 10/20/20 10:33 Pantoprazole 40 Mg Tab PO 40 mg QDAC RENALDO Administration Sodium Chloride 10 ml 10/19/20 11:34 Sodium Chloride 0.9% 10 Ml Flush Syringe IV PRN PRN LINE FLUSH Tramadol HCl 50 mg 10/19/20 11:34 10/19/20 18:51 Tramadol 50 Mg Tab PO 50 mg Q6H PRN Administration Pain, Moderate (4-6) Nutrition/Malnutrition Assess - Malnutrition Assessment Minimum of two criteria: No - Attestation Statement I have reviewed and agreed w/ Malnutrition eval & tx plan: No
[2020-10-20] MEDS: METOPROLOL SUCCINATE XL 25 MG TAB PO SCH ×3 (12:52→17:19)
[2020-10-20] MEDS: traMADol 50 MG TAB PO PRN ×2 (12:52→22:47)
[2020-10-21] MEDS: LEVOTHYROXINE 100 MCG TAB PO SCH (06:32)
[2020-10-21] MEDS: FUROSEMIDE 40 MG/4 ML INJ IV SCH (06:32)
[2020-10-21] MEDS: HEPARIN 5,000 UNIT/1 ML VIAL SUB-Q SCH ×2 (06:36→14:07)
--- NOTE | 2020-10-21 07:48 | Progress Note ---
Assessment and Plan Assessment and plan: 59-year-old female with past medical history of hypertension, CVA, history of heart attack and hypothyroidism was brought to the emergency room because of chest pain for the past 2 days which is substernal/right-sided chest pressure that has been constant in nature associated with shortness of breath, na usea/vomiting and diaphoresis. Patient states she has noticed swelling to both feet and she admits to orthopnea for 2 days. Patient currently gets her chest pressure score of 8/10. Echocardiogram done yesterday revealed EF of 15%. [facility] 11/11/19 revealed severe [place] vessel CAD with patent CRISTOBAL to LAD with diffuse distal LAD disease, patent HYMAN to OM with 100% occulsion of OM distal to graft, patent radial grafts to PDA and diagonal. Medical therapy was recommended at that time. (1) CHF (congestive heart failure) Current Visit: Yes Status: Acute Plan to address problem: Admit the patient to the medical floor telemetry. Put the patient on CHF pathway. Cardiac diet. Lasix 40 mg IV every 12 hours. Fluid restriction. Maintain intake output. Echocardiogram. Consult cardiology (2) Chest pain Current Visit: Yes Status: Acute Plan to address problem: Aspirin 325 mg p.o. daily. Lipitor 40 mg p.o. daily. Nitroglycerin as needed. Lipid panel. we will do the serial cardiac enzyme. Echocardiogram. Consult cardiology for further evaluation and treatment. (3) Hypertension Current Visit: Yes Status: Acute Plan to address problem: Lisinopril 2.5 mg p.o. daily. Hydralazine 10 mg IV every 6 hours as needed. Monitor the blood pressure closely (4) CVA (cerebral vascular accident) Current Visit: Yes Status: Acute Plan to address problem: Stable. We will continue aspirin 325 mg p.o. daily. Lipitor 40 mg p.o. daily. (5) Coronary artery disease Current Visit: Yes Status: Acute Plan to address problem: Aspirin 325 mg p.o. daily. Lipitor 40 mg p.o. daily. Echocardiogram. Will consult cardiology for evaluation and treatment (6) Hypothyroidism Current Visit: Yes Status: Acute Plan to address problem: Synthroid 100 mcg p.o. daily. Outpatient follow-up with endocrinology (7) DVT prophylaxis Current Visit: Yes Status: Acute Plan to address problem: Heparin 5000 units subcu every 8 hours for DVT prophylaxis. Protonix 40 mg p.o. daily for GI prophylaxis. Patient is a full code 10/20/20 patient feels better. Decreased shortness of breath. No chest pain. Patient is seen and evaluated by cardiology.Echocardiogram done yesterday revealed EF of 15%. [facility] 11/11/19 revealed severe [place] vessel CAD with patent CRISTOBAL to LAD with diffuse distal LAD disease, patent HYMAN to OM with 100% occulsion of OM distal to graft, patent radial grafts to PDA and diagonal. Continue Lasix 40 mg IV every 12 hours. Metoprolol XL 25 mg p.o. daily. Continue current management. Discharge planning morning if cleared by cardiology. 06/23: Bradycardia with re-initiation of Toprol, not symptomatic, will ambulate and if improved will discuss with cardiology about discharge today or in AM. Hospitalist Physical - Constitutional Vitals: Temp Pulse Resp BP Pulse Ox 97.3 F L 48 L 18 111/66 100 10/21/20 04:06 10/21/20 04:06 10/21/20 04:06 10/21/20 04:06 10/21/20 04:06 General appearance: Present: no acute distress HEART Score - HEART Score EKG: Non-specific Age: 45-65 Risk factors: 1-2 risk factors Troponin: Troponin T 0.015 ng/mL (0.00-0.029) 10/19/20 14:43 Troponin: < normal limit Results - Labs CBC & Chem 7: 10/19/20 14:43 10/19/20 14:43 Labs: Laboratory Last Values WBC 5.5 K/mm3 (4.5-11.0) 10/19/20 14:43 RBC 5.05 M/mm3 (3.65-5.03) H 10/19/20 14:43 Hgb 13.0 gm/dl (10.1-14.3) 10/19/20 14:43 Hct 39.5 % (30.3-42.9) 10/19/20 14:43 MCV 78 fl (79-97) L 10/19/20 14:43 MCH 26 pg (28-32) L 10/19/20 14:43 MCHC 33 % (30-34) 10/19/20 14:43 RDW 17.6 % (13.2-15.2) H 10/19/20 14:43 Plt Count 203 K/mm3 (140-440) 10/19/20 14:43 Lymph % (Auto) 38.3 % (13.4-35.0) H 10/19/20 14:43 [place] % (Auto) 7.9 % (0.0-7.3) H 10/19/20 14:43 Eos % (Auto) 1.8 % (0.0-4.3) 10/19/20 14:43 Baso % (Auto) 1.6 % (0.0-1.8) 10/19/20 14:43 Lymph # (Auto) 2.1 K/mm3 (1.2-5.4) 10/19/20 14:43 [place] # (Auto) 0.4 K/mm3 (0.0-0.8) 10/19/20 14:43 Eos # (Auto) 0.1 K/mm3 (0.0-0.4) 10/19/20 14:43 Baso # (Auto) 0.1 K/mm3 (0.0-0.1) 10/19/20 14:43 Seg Neutrophils % 50.4 % (40.0-70.0) 10/19/20 14:43 Seg Neutrophils # 2.8 K/mm3 (1.8-7.7) 10/19/20 14:43 PT 15.9 Sec. (12.2-14.9) H 10/19/20 09:07 INR 1.21 (0.87-1.13) H 10/19/20 09:07 APTT 25.6 Sec. (24.2-36.6) 10/19/20 09:07 Sodium 142 mmol/L (137-145) 10/19/20 14:43 Potassium 3.9 mmol/L (3.6-5.0) 10/19/20 14:43 Chloride 104.8 mmol/L (98-107) 10/19/20 14:43 Carbon Dioxide 24 mmol/L (22-30) 10/19/20 14:43 Anion Gap 17 mmol/L 10/19/20 14:43 BUN 20 mg/dL (7-17) H 10/19/20 14:43 Creatinine 1.3 mg/dL (0.6-1.2) H 10/19/20 14:43 Estimated GFR 51 ml/min 10/19/20 14:43 BUN/Creatinine Ratio 15 % 10/19/20 14:43 Glucose 121 mg/dL (65-100) H 10/19/20 14:43 Calcium 9.3 mg/dL (8.4-10.2) 10/19/20 14:43 Total Creatine Kinase 219 units/L (30-135) H 10/19/20 09:07 CK-MB (CK-2) 6.2 ng/mL (0.0-4.0) H 10/19/20 09:07 CK-MB (CK-2) Rel Index 2.8 (0-4) 10/19/20 09:07 Troponin T 0.015 ng/mL (0.00-0.029) 10/19/20 14:43 NT-Pro-B Natriuret Pep 4381 pg/mL (0-900) H 10/19/20 09:07 Triglycerides 62 mg/dL (2-149) 10/19/20 14:43 Cholesterol 194 mg/dL (50-199) 10/19/20 14:43 LDL Cholesterol Direct 157 mg/dL (50-130) H 10/19/20 14:43 HDL Cholesterol 41 mg/dL (40-59) 10/19/20 14:43 Cholesterol/HDL Ratio 4.73 % 10/19/20 14:43 TSH 44.800 mlU/mL (0.270-4.200) H 10/19/20 09:07 Free T4 0.85 ng/dL (0.76-1.46) 10/19/20 09:07 Gorman/IV: Voiding Method Toilet Active Medications - Current Medications Current Medications: Generic Name Dose Route Start Last Admin Trade Name Freq PRN Reason Stop Dose Admin Acetaminophen 650 mg 10/19/20 11:34 Acetaminophen 325 Mg Tab PO Q6H PRN Pain, Mild (1-3) Aspirin 325 mg 10/20/20 10:00 10/20/20 10:33 Aspirin Ec 325 Mg Tab PO 325 mg QDAY RENALDO Administration Atorvastatin Calcium 40 mg 10/19/20 22:00 10/20/20 22:47 Atorvastatin 40 Mg Tab PO 40 mg QHS RENALDO Administration Furosemide 40 mg 10/19/20 18:00 10/21/20 06:32 Furosemide 40 Mg/4 Ml Inj IV 40 mg BID@0600,1800 [facility] Administration Heparin Sodium (Porcine) 5,000 unit 10/19/20 14:00 10/21/20 06:36 Heparin 5,000 Unit/1 Ml Vial SUB-Q Not Given Q8HR [facility] Hydralazine HCl 10 mg 10/19/20 11:25 Hydralazine 20 Mg/1 Ml Inj IV Q6H PRN htn Levothyroxine Sodium 100 mcg 10/20/20 06:00 10/21/20 06:32 Levothyroxine 100 Mcg Tab PO 100 mcg DAILY@0600 [facility] Administration Lisinopril 2.5 mg 10/20/20 10:00 10/20/20 10:33 Lisinopril 5 Mg Tab PO 2.5 mg QDAY [facility] Administration Metoprolol Succinate 25 mg 10/20/20 12:00 10/20/20 17:19 Metoprolol Succinate Xl 25 Mg Tab PO 25 mg QDAY RENALDO Administration Nitroglycerin 0.4 mg 10/19/20 11:34 Nitroglycerin 0.4 Mg Tab Subl SL Q5M PRN Chest Pain Pantoprazole Sodium 40 mg 10/20/20 07:30 10/20/20 10:33 Pantoprazole 40 Mg Tab PO 40 mg QDAC RENALDO Administration Sodium Chloride 10 ml 10/19/20 11:34 10/21/20 06:36 Sodium Chloride 0.9% 10 Ml Flush Syringe IV 10 ml PRN PRN Administration LINE FLUSH Tramadol HCl 50 mg 10/19/20 11:34 10/20/20 22:47 Tramadol 50 Mg Tab PO 50 mg Q6H PRN Administration Pain, Moderate (4-6)
[2020-10-21 08:36] VITALS: BP 137/85
--- NOTE | 2020-10-21 08:43 | Discharge Summary ---
Providers - Providers Date of Admission: 10/19/20 10:18 Attending physician: VIKY SHEA MD 10/19/20 Consult to Cardiac Rehabilitation [CONS] Routine Reason For Exam: Phase I 10/19/20 11:34 Consult to Cardiology [CONS] Routine Consulting Provider: SCAR NICHOLS Reason For Exam: Chest pain Primary care physician: MAINSPRING [employer] CLE[employer]ER Hospitalization Reason for admission: Shortness of breath Condition: Stable Hospital course: 59-year-old female with past medical history of hypertension, CVA, history of heart attack and hypothyroidism was brought to the emergency room because of chest pain for the past 2 days which is substernal/right-sided chest pressure that has been constant in nature associated with shortness of breath, n ausea/vomiting and diaphoresis. Patient states she has noticed swelling to both feet and she admits to orthopnea for 2 days. Patient currently gets her chest pressure score of 8/10. Echocardiogram done yesterday revealed EF of 15%. C 11/11/19 revealed severe [place] vessel CAD with patent CRISTOBAL to LAD with diffuse distal LAD disease, patent HYMAN to OM with 100% occulsion of OM distal to graft, patent radial grafts to PDA and diagonal. Medical therapy was recommended at that time. (1) CHF (congestive heart failure) Current Visit: Yes Status: Acute Plan to address problem: Admit the patient to the medical floor telemetry. Put the patient on CHF pathway. Cardiac diet. Lasix 40 mg IV every 12 hours. Fluid restriction. Maintain intake output. Echocardiogram. Consult cardiology (2) Chest pain Current Visit: Yes Status: Acute Plan to address problem: Aspirin 325 mg p.o. daily. Lipitor 40 mg p.o. daily. Nitroglycerin as needed. Lipid panel. we will do the serial cardiac enzyme. Echocardiogram. Consult cardiology for further evaluation and treatment. (3) Hypertension Current Visit: Yes Status: Acute Plan to address problem: Lisinopril 2.5 mg p.o. daily. Hydralazine 10 mg IV every 6 hours as needed. Monitor the blood pressure closely (4) CVA (cerebral vascular accident) Current Visit: Yes Status: Acute Plan to address problem: Stable. We will continue aspirin 325 mg p.o. daily. Lipitor 40 mg p.o. daily. (5) Coronary artery disease Current Visit: Yes Status: Acute Plan to address problem: Aspirin 325 mg p.o. daily. Lipitor 40 mg p.o. daily. Echocardiogram. Will consult cardiology for evaluation and treatment (6) Hypothyroidism Current Visit: Yes Status: Acute Plan to address problem: Synthroid 100 mcg p.o. daily. Outpatient follow-up with endocrinology Bradycardia Severe cardiomyopathy EF of 15% 10/20/20 patient feels better. Decreased shortness of breath. No chest pain. Patient is seen and evaluated by cardiology.Echocardiogram done yesterday revealed EF of 15%. [facility] 11/11/19 revealed severe [place] vessel CAD with patent CRISTOBAL to LAD with diffuse distal LAD disease, patent HYMAN to OM with 100% occulsion of OM distal to graft, patent radial grafts to PDA and diagonal. Continue Lasix 40 mg IV every 12 hours. Metoprolol XL 25 mg p.o. daily. Continue current management. Discharge planning morning if cleared by cardiology. 10/21: Patient this morning noted to have mild bradycardia with re-initiation of Toprol, not symptomatic, she denies any symptoms on ambulation. Discussed extensively with her she reports that she has some salt intake more than normal. She was not aware about salt restrictions and she will comply today. Also discussed daily weights and recording numbers and discussing with the event staff member. She is clinically stable at this time will discharge if okay with cardiology She is requesting for renewal of all medications appears she has self stopped some medications. Review of her records Showed that she was on Lasix although she was taking it as it was on the med rec not sure if this did incorrectly feel the med rec. She does have by virtue of her EF severe cardiomyopathy will defer to cardiology if patient will benefit from anticoagulation or plus or minus AICD device. She does not report any history of syncope. Disposition: - TO HOME OR SELFCARE Final Discharge Diagnosis (Prints w/discharge instructions): Acute on chronic systolic congestive heart failure Time spent for discharge: 35 minutes Core Measure Documentation - Palliative Care Palliative Care/ Comfort Measures: Not Applicable - Core Measures Any of the following diagnoses?: heart failure - Heart Failure Discharge Requirements MAC/ARB for LVSD if EF <40%: Yes Beta lilian at discharge: Yes Exam - Physical Exam Narrative exam: VITAL SIGNS: Reviewed. GENERAL: The patient appears normally developed, Vital signs as documented. HEAD: No signs of head trauma. EYES: Pupils are equal. Extraocular motions intact. EARS: Hearing grossly intact. MOUTH: Oropharynx is normal. NECK: No adenopathy, no JVD. CHEST: Chest with diminished breath sounds bilaterally. No wheezes, rales, or rhonchi. CARDIAC: Regular rate and rhythm. S1 and S2, without murmurs, gallops, or rubs. VASCULAR:. With trace edema. Peripheral pulses normal and equal in all extremities. ABDOMEN: Soft, non tender and non distended. No rebound or guarding, and no masses palpated. Bowel Sounds normal. MUSCULOSKELETAL: Good range of motion of all major joints. Extremities without clubbing, cyanosis. With trace pedal edema. NEUROLOGIC EXAM: Alert and oriented x 3 No focal sensory or strength deficits. Speech normal. Follows commands. PSYCHIATRIC: Mood normal. SKIN: detail exam as documented in skin assessment - Constitutional Vitals: Temp Pulse Resp BP Pulse Ox 98.4 F 55 L 19 137/85 98 10/21/20 07:43 10/21/20 07:43 10/21/20 07:43 10/21/20 07:43 10/21/20 07:43 Plan Activity: advance as tolerated, fall precautions Diet: low salt Special Instructions: restrict fluid intake to (1000cc/day), record daily weights, record daily BP diary Follow up with: PRIMARY CAREMD [Primary Care Provider] - 7 Days RENETTA JOHNSTON MD [Staff Physician] - 7 Days Prescriptions: AtorvaSTATin [Lipitor] 40 mg PO QHS #30 tablet Aspirin [Aspirin BABY CHEW TAB] 81 mg PO DAILY #30 tab Furosemide [Lasix TAB] 40 mg PO QDAY #30 tablet Metoprolol Xl [Metoprolol SUCCINATE ER TAB] 25 mg PO QDAY #30 tablet Nitroglycerin [Nitrostat] 0.4 mg SL Q5M PRN #30 tablet PRN Reason: Chest Pain Pantoprazole [Protonix TAB] 40 mg PO QDAC #30 tablet Lisinopril [Zestril TAB] 2.5 mg PO QDAY #30 tab
[2020-10-21] MEDS: METOPROLOL SUCCINATE XL 25 MG TAB PO SCH (10:27)
[2020-10-21] MEDS: ASPIRIN EC 325 MG TAB PO SCH (10:27)
[2020-10-21] MEDS: LISINOPRIL 5 MG TAB PO SCH (10:27)
[2020-10-21] MEDS: PANTOPRAZOLE 40 MG TAB PO SCH (10:28)
--- NOTE | 2020-10-21 12:50 | Progress Note ---
Assessment and Plan Acute on chronic systolic heart failure Ischemic cardiomyopathy with EF 15% CAD s/p CABG. [facility] 11/11/19 revealed severe [place] vessel CAD with patent CRISTOBAL to LAD with diffuse distal LAD disease, patent HYMAN to OM with 100% occulsion of OM distal to graft, patent radial grafts to PDA and diagonal. Medical therapy was recommended at that time. Htn Recommend: Continue current medical therapy OK to discharge with outpatient f/u with primary compounder sterile products - Dr Duggan Subjective Date of service: 10/21/20 Interval history: No acute events Objective Vital Signs Temp Pulse Resp BP Pulse Ox 10/21/20 10:00 47 L 10/21/20 07:43 98.4 F 55 L 19 137/85 98 10/21/20 04:06 97.3 F L 48 L 18 111/66 100 10/20/20 23:49 97.7 F 58 L 18 130/78 96 10/20/20 22:47 20 10/20/20 22:00 58 L 10/20/20 20:13 97.6 F 61 18 113/73 100 10/20/20 17:36 100 10/20/20 16:13 98.7 F 56 L 18 135/77 97 - Physical Examination Neck: Positive: neck supple Cardiac: Positive: Reg Rate and Rhythm Lungs: Positive: clear to auscultation Abdomen: Positive: Soft Extremities: Absent: edema
--- NOTE | 2020-10-21 13:17 | Electrocardiograph Report ---
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
== END 2020-10-21 17:28 | disposition home or self-care (01) ==
LOC: ED 08:09 → 4A 10:18
PROVIDERS: ADMIT Hospitalist; ATTEND Internal Medicine
DX: I11.0 Hypertensive heart disease with heart failure (principal); I50.23 Acute on chronic systolic (congestive) heart failure; I25.10 Atherosclerotic heart disease of native coronary artery without angina pectoris; I63.9 Cerebral infarction, unspecified; E03.9 Hypothyroidism, unspecified; I25.2 Old myocardial infarction; I25.5 Ischemic cardiomyopathy; Z79.899 Other long term (current) drug therapy; Z98.890 Other specified postprocedural states; Z95.1 Presence of aortocoronary bypass graft; Z79.82 Long term (current) use of aspirin
CPT/HCPCS: 36415; 71045; 80048; 80061; 82550; 82553; 83880; 84439; 84443; 84484; 85025; 85610; 85730; 93005; 93306; 96372; 96374; 96375; 96376; 99285; A9270; G0378; J1644; J1940; J2405; J3010

== ENCOUNTER 2021-07-24 07:29 | Observation (INO) | payer MEDICARE ==
[2021-07-24] MEDS ORDERED: ASPIRIN 325 MG TAB PO ONE (08:08)
[2021-07-24] MEDS ORDERED: NITROGLYCERIN 0.4 MG TAB SUBL SL ONE (08:08)
--- NOTE | 2021-07-24 08:12 | Emergency Department Report ---
ED Chest Pain HPI - General Chief Complaint: Chest Pain Stated Complaint: CHEST PAIN PUI?: No Time Seen by Provider: 07/24/21 07:53 Source: patient Mode of arrival: Ambulatory Limitations: No Limitations - History of Present Illness Initial Comments: CC: chest pain, cough, lower back pain HPI: This is a 60 yo female with hx of CHF, CVA, hypothyroidism, CAD s/p CABG who presents with chest pain, cough, lower back pain since yesterday. Substernal dull chest pain 8/10 in severity. Constant at rest. Mrs. Cameron took aspirin this morning. Complaint: chest pain -: Gradual, days(s) (Occurred on yesterday) Pain Location: substernal Pain Radiation: none Severity: severe Severity scale (0 -10): 10 Quality: aching Consistency: constant Improves With: nothing Worsens With: nothing Other Symptoms: other (Lower back pain) - Related Data Home Medications Medication Instructions Recorded Confirmed Last Taken Levothyroxine [Synthroid] 100 mcg PO QDAY 06/09/17 07/24/21 06/08/17 Previous Rx's Medication Instructions Recorded Last Taken Type Aspirin [Aspirin BABY CHEW TAB] 81 mg PO DAILY #30 tab 10/21/20 07/24/21 07:00 Rx 162 mg AtorvaSTATin [Lipitor] 40 mg PO QHS #30 tablet 10/21/20 Unknown Rx Furosemide [Lasix TAB] 40 mg PO QDAY #30 tablet 10/21/20 Unknown Rx Lisinopril [Zestril TAB] 2.5 mg PO QDAY #30 tab 10/21/20 Unknown Rx Metoprolol Xl [Metoprolol 25 mg PO QDAY #30 tablet 10/21/20 Unknown Rx SUCCINATE ER TAB] Nitroglycerin [Nitrostat] 0.4 mg SL Q5M PRN #30 tablet 10/21/20 Unknown Rx Pantoprazole [Protonix TAB] 40 mg PO QDAC #30 tablet 10/21/20 Unknown Rx Allergies Allergy/AdvReac Type Severity Reaction Status Date / Time No Known Allergies Allergy Verified 06/09/17 07:18 Heart Score - HEART Score History: Moderately suspicious EKG: Non-specific Age: 45-65 Risk factors: 1-2 risk factors Troponin: < normal limit HEART Score: 4 - EKG Read Time Time EKG Completed: 00:00 EKG Read Time: 00:00 - Critical Actions Critical Actions: 0-3 pts:0.9-1.7%risk of adverse cardiac event.Candidate for discharge ED Review of Systems ROS: Stated complaint: CHEST PAIN Other details as noted in HPI Comment: All other systems reviewed and negative Constitutional: denies: chills, fever, malaise Respiratory: denies: cough, shortness of breath Cardiovascular: chest pain Gastrointestinal: denies: abdominal pain, nausea, vomiting Musculoskeletal: back pain ED Past Medical Hx - Past Medical History Previous Medical History?: Yes Hx Hypertension: Yes Hx CVA: Yes (2006) Hx Heart Attack/AMI: Yes (12 year ago; 7 UT's) Hx Congestive Heart Failure: Yes Additional medical history: hypothyroid - Surgical History Past Surgical History?: Yes Hx Coronary Stent: Yes Hx Open Heart Surgery: Yes Additional Surgical History: Quadruple bypass, 2 heart stents - Family History Family history: hypertension - Social History Smoking Status: Never Smoker Substance Use Type: None - Medications Home Medications: Home Medications Medication Instructions Recorded Confirmed Last Taken Type Levothyroxine [Synthroid] 100 mcg PO QDAY 06/09/17 07/24/21 06/08/17 History Aspirin [Aspirin BABY CHEW TAB] 81 mg PO DAILY #30 tab 10/21/20 07/24/21 07/24/21 07:00 Rx 162 mg AtorvaSTATin [Lipitor] 40 mg PO QHS #30 tablet 10/21/20 07/24/21 Unknown Rx Furosemide [Lasix TAB] 40 mg PO QDAY #30 tablet 10/21/20 07/24/21 Unknown Rx Lisinopril [Zestril TAB] 2.5 mg PO QDAY #30 tab 10/21/20 07/24/21 Unknown Rx Metoprolol Xl [Metoprolol 25 mg PO QDAY #30 tablet 10/21/20 07/24/21 Unknown Rx SUCCINATE ER TAB] Nitroglycerin [Nitrostat] 0.4 mg SL Q5M PRN #30 tablet 10/21/20 07/24/21 Unknown Rx Pantoprazole [Protonix TAB] 40 mg PO QDAC #30 tablet 10/21/20 07/24/21 Unknown R x ED Physical Exam - General Limitations: No Limitations General appearance: alert, in no apparent distress - Head Head exam: Present: atraumatic, normocephalic - Eye Eye exam: Present: normal appearance - ENT ENT exam: Present: mucous membranes moist - Neck Neck exam: Present: normal inspection, full ROM - Respiratory Respiratory exam: Present: normal lung sounds bilaterally. Absent: respiratory distress, wheezes, rales, rhonchi - Cardiovascular Cardiovascular Exam: Present: regular rate, normal rhythm, normal heart sounds. Absent: systolic murmur, diastolic murmur, rubs, gallop - GI/Abdominal GI/Abdominal exam: Present: soft, normal bowel sounds. Absent: distended, tenderness, guarding, rebound - Extremities Exam Extremities exam: Present: normal inspection - Neurological Exam Neurological exam: Present: alert, oriented X3 - Psychiatric Psychiatric exam: Present: normal affect, normal mood - Skin Skin exam: Present: warm, dry, intact, normal color. Absent: rash ED Course Vital Signs 07/24/21 07/24/21 07/24/21 07:31 08:01 08:27 Temperature 97.9 F Pulse Rate 78 78 Respiratory 18 Rate Blood Pressure 162/87 Blood Pressure 185/107 [Right] O2 Sat by Pulse 97 99 Oximetry 07/24/21 08:43 Temperature Pulse Rate 56 L Respiratory 18 Rate Blood Pressure Blood Pressure 142/71 [Right] O2 Sat by Pulse 98 Oximetry JUAN score - Juan Score Age > 65: (0) No Aspirin use within the Past 7 Days: (1) Yes 3 or more CAD Risk Factors: (1) Yes 2 or more Angina events in past 24 hrs: (1) Yes Known CAD with more than 50% Stenosis: (1) Yes Elevated Cardiac Markers: (0) No ST Deviation Greater than 0.5mm: (0) No JUAN Score: 4 ED Medical Decision Making - Lab Data Result diagrams: 07/24/21 08:44 07/24/21 08:45 - EKG Data -: EKG Interpreted by Me - EKG Data Interpretation: nonspecific ST-T wave [place] 07/24/21 08:11 EKG obtained 0733 EKG interpreted by me Normal sinus rhythm rate 70 bpm normal axis prolonged QTC no ST elevation nonspecific T wave pattern poor R wave progression - Radiology Data Radiology results: report reviewed Patient Name: JESUS CAMERON Gender: Female Date of : 1960 Referring Provider: LIZBET GUTIÉRREZ Organization: [facility] Accession Number: [id number] Requested Date: July 24, 2021 08:08 Report Status: Final Requested Procedure: 1 Procedure Description: XR chest 1V ap Modality: XR Findings Reporting MD: Good Diaz Dictation Time: July 24, 2021 07:32 Client Services Administrator: Not available Crusher Assembler Date: CHEST 1 VIEW 07/24/2021 8:18 AM INDICATION / CLINICAL INFORMATION: Chest Pain. COMPARISON: 10/19/2020 FINDINGS: SUPPORT DEVICES: None. HEART / MEDIASTINUM: Stable mild cardiomegaly. LUNGS / PLEURA: No significant pulmonary or pleural abnormality. No pneumothorax. ADDITIONAL FINDINGS: No significant additional findings. IMPRESSION: 1. No acute findings. Unchanged mild cardiomegaly. Signer Name: Good Diaz MD Signed: 07/24/2021 7:32 AM Workstation Name: [id number] - Medical Decision Making Acute coronary syndrome: Troponin negative, EKG nonspecific findings without evidence of acute infarct. Heart score 4. Troponin negative. Elevated BNP without pulmonary edema on chest radiograph. Admitted to the hospital service for further evaluation. CBC chemistry otherwise unremarkable Critical care attestation.: If time is entered above; I have spent that time in minutes in the direct care of this critically ill patient, excluding procedure time. ED Disposition Clinical Impression: Acute coronary syndrome Disposition: ADMITTED INPATIENT Is pt being admited?: Yes Does the pt Need Aspirin: No Condition: Stable Referrals: FARSHAD SIFUENTES MD [Primary Care Provider] - 3-5 Days
--- NOTE | 2021-07-24 08:36 | XRay Report ---
CHEST 1 VIEW 07/24/2021 8:18 AM INDICATION / CLINICAL INFORMATION: Chest Pain. COMPARISON: 10/19/2020 FINDINGS: SUPPORT DEVICES: None. HEART / MEDIASTINUM: Stable mild cardiomegaly. LUNGS / PLEURA: No significant pulmonary or pleural abnormality. No pneumothorax. ADDITIONAL FINDINGS: No significant additional findings. IMPRESSION: 1. No acute findings. Unchanged mild cardiomegaly. Signer Name: Good Diaz MD Signed: 07/24/2021 8:32 AM Workstation Name: [id number]
[2021-07-24 09:12] LABS: Basophils % (Auto) 0.7 % (0.0-1.8); Hematocrit 32.8 % (30.3-42.9); Hemoglobin 10.5 gm/dl (10.1-14.3); Lymphocytes # (Auto) 1.2 K/mm3 (1.2-5.4); Lymphocytes % (Auto) 24.6 % (13.4-35.0); Mean Corpuscular HGB Conc 32 % (30-34); Mean Corpuscular Volume 80 fl (79-97); Monocytes # (Auto) 0.4 K/mm3 (0.0-0.8); Monocytes % (Auto) 7.9 % (0.0-7.3); Platelet Count 183 K/mm3 (140-440); Red Blood Count 4.13 M/mm3 (3.65-5.03); Red Cell Distribution Width 16.2 % (13.2-15.2)
[2021-07-24 09:35] LABS: Alanine Aminotransferase 41 units/L (7-56); Albumin 3.8 g/dL (3.9-5); BUN/Creatinine Ratio 19; Blood Urea Nitrogen 21 mg/dL (7-17); Calcium 8.8 mg/dL (8.4-10.2); Hemolysis Index 4
[2021-07-24] MEDS ORDERED: ONDANSETRON 4 MG/2 ML INJ IV ONE (10:21)
[2021-07-24] MEDS ORDERED: ASPIRIN 81 MG TAB CHEW PO STA (14:01)
[2021-07-24] MEDS ORDERED: MORPHINE 4 MG/1 ML INJ IV PRN (14:01)
[2021-07-24] MEDS ORDERED: ACETAMINOPHEN 325 MG TAB PO PRN (14:30)
--- NOTE | 2021-07-24 14:31 | Electrocardiograph Report ---
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
--- NOTE | 2021-07-24 14:46 | History and Physical Report ---
History of Present Illness Date of examination: 07/24/21 Date of admission: 07/24/21 Chief complaint: CP History of present illness: This is a 60 yo female with hx of CHF, CVA, hypothyroidism, CAD s/p CABG who presents with chest pain, cough, lower back pain since yesterday. Substernal dull chest pain 8/10 in severity. Constant at rest. Mrs. Miner took aspirin this morning. Pt pain reproducible Past History Past Medical History: hypertension, hyperlipidemia Medications and Allergies Allergies Allergy/AdvReac Type Severity Reaction Status Date / Time No Known Allergies Allergy Verified 07/24/21 13:55 Home Medications Medication Instructions Recorded Confirmed Last Taken Type Levothyroxine [Synthroid] 100 mcg PO QDAY 06/09/17 07/24/21 06/08/17 History Aspirin [Aspirin BABY CHEW TAB] 81 mg PO DAILY #30 tab 10/21/20 07/24/21 07/24/21 07:00 Rx 162 mg AtorvaSTATin [Lipitor] 40 mg PO QHS #30 tablet 10/21/20 07/24/21 Unknown Rx Furosemide [Lasix TAB] 40 mg PO QDAY #30 tablet 10/21/20 07/24/21 Unknown Rx Lisinopril [Zestril TAB] 2.5 mg PO QDAY #30 tab 10/21/20 07/24/21 Unknown Rx Metoprolol Xl [Metoprolol 25 mg PO QDAY #30 tablet 10/21/20 07/24/21 Unknown Rx SUCCINATE ER TAB] Nitroglycerin [Nitrostat] 0.4 mg SL Q5M PRN #30 tablet 10/21/20 07/24/21 Unknown Rx Pantoprazole [Protonix TAB] 40 mg PO QDAC #30 tablet 10/21/20 07/24/21 Unknown Rx Active Meds: Active Medications Acetaminophen (Acetaminophen 325 Mg Tab) 650 mg PO Q6H PRN PRN Reason: Pain, Mild (1-3) Aspirin (Aspirin 81 Mg Tab Chew) 324 mg PO ONCE STA Stop: 07/24/21 14:02 Last Admin: 07/24/21 14:36 Dose: Not Given Atorvastatin Calcium (Atorvastatin 40 Mg Tab) 40 mg PO QHS RENALDO Furosemide (Furosemide 40 Mg Tab) 40 mg PO QDAY RENALDO Levothyroxine Sodium (Levothyroxine 100 Mcg Tab) 100 mcg PO DAILY@0600 RENALDO Lisinopril (Lisinopril 5 Mg Tab) 2.5 mg PO QDAY RENALDO Metoprolol Succinate (Metoprolol Succinate Xl 25 Mg Tab) 25 mg PO QDAY RENALDO Morphine Sulfate (Morphine 2 Mg/1 Ml Inj) 2 mg IV Q4H PRN PRN Reason: CHEST PAIN UNRELIEVED BY NTG Nitroglycerin (Nitroglycerin 0.4 Mg Tab Subl) 0.4 mg SL Q5M PRN PRN Reason: Chest Pain Pantoprazole Sodium (Pantoprazole 40 Mg Tab) 40 mg PO QDAC RENALDO Sodium Chloride (Sodium Chloride 0.9% 10 Ml Flush Syringe) 10 ml IV PRN PRN PRN Reason: LINE FLUSH Tramadol HCl (Tramadol 50 Mg Tab) 50 mg PO Q6H PRN PRN Reason: Pain, Moderate (4-6) Review of Systems All systems: negative Exam - Constitutional Vitals: Temp Pulse Resp BP Pulse Ox 98.9 F 62 18 171/108 98 07/24/21 13:18 07/24/21 13:18 07/24/21 13:18 07/24/21 13:18 07/24/21 13:18 General appearance: Present: no acute distress, well-nourished - EENT Eyes: Present: PERRL ENT: hearing intact, clear oral mucosa - Neck Neck: Present: supple, normal ROM - Respiratory Respiratory effort: normal Respiratory: bilateral: CTA - Cardiovascular Heart Sounds: Present: S1 & S2. Absent: rub, click - Extremities Extremities: pulses symmetrical, No edema Peripheral Pulses: within normal limits - Abdominal General gastrointestinal: Present: soft, non-tender, non-distended, normal bowel sounds Female genitourinary: Present: normal - Integumentary Integumentary: Present: clear, warm, dry - Musculoskeletal Musculoskeletal: gait normal, strength equal bilaterally - Psychiatric Psychiatric: appropriate mood/affect, intact judgment & insight - Neurologic Neurologic: CNII-XII intact, moves all extremities HEART Score - HEART Score EKG: Non-specific Age: 45-65 Risk factors: 1-2 risk factors Troponin: Troponin T < 0.010 ng/mL (0.00-0.029) 07/24/21 08:45 Troponin: < normal limit - Critical Actions Critical Actions: 0-3 pts:0.9-1.7%risk of adverse cardiac event.Candidate for discharge Results - Labs CBC & Chem 7: 07/24/21 08:44 07/24/21 08:45 Labs: Laboratory Last Values WBC 4.9 K/mm3 (4.5-11.0) 07/24/21 08:44 RBC 4.13 M/mm3 (3.65-5.03) 07/24/21 08:44 Hgb 10.5 gm/dl (10.1-14.3) 07/24/21 08:44 Hct 32.8 % (30.3-42.9) 07/24/21 08:44 MCV 80 fl (79-97) 07/24/21 08:44 MCH 26 pg (28-32) L 07/24/21 08:44 MCHC 32 % (30-34) 07/24/21 08:44 RDW 16.2 % (13.2-15.2) H 07/24/21 08:44 Plt Count 183 K/mm3 (140-440) 07/24/21 08:44 Lymph % (Auto) 24.6 % (13.4-35.0) 07/24/21 08:44 [facility] % (Auto) 7.9 % (0.0-7.3) H 07/24/21 08:44 Eos % (Auto) 1.0 % (0.0-4.3) 07/24/21 08:44 Baso % (Auto) 0.7 % (0.0-1.8) 07/24/21 08:44 Lymph # (Auto) 1.2 K/mm3 (1.2-5.4) 07/24/21 08:44 [facility] # (Auto) 0.4 K/mm3 (0.0-0.8) 07/24/21 08:44 Eos # (Auto) 0.0 K/mm3 (0.0-0.4) 07/24/21 08:44 Baso # (Auto) 0.0 K/mm3 (0.0-0.1) 07/24/21 08:44 Seg Neutrophils % 65.8 % (40.0-70.0) 07/24/21 08:44 Seg Neutrophils # 3.3 K/mm3 (1.8-7.7) 07/24/21 08:44 Sodium 140 mmol/L (137-145) 07/24/21 08:45 Potassium 4.5 mmol/L (3.6-5.0) 07/24/21 08:45 Chloride 104.7 mmol/L (98-107) 07/24/21 08:45 Carbon Dioxide 22 mmol/L (22-30) 07/24/21 08:45 Anion Gap 18 mmol/L 07/24/21 08:45 BUN 21 mg/dL (7-17) H 07/24/21 08:45 Creatinine 1.1 mg/dL (0.6-1.2) 07/24/21 08:45 Estimated GFR > 60 ml/min 07/24/21 08:45 BUN/Creatinine Ratio 19 % 07/24/21 08:45 Glucose 96 mg/dL (65-100) 07/24/21 08:45 Calcium 8.8 mg/dL (8.4-10.2) 07/24/21 08:45 Total Bilirubin 1.00 mg/dL (0.1-1.2) 07/24/21 08:45 AST 52 units/L (5-40) H 07/24/21 08:45 ALT 41 units/L (7-56) 07/24/21 08:45 Alkaline Phosphatase 85 units/L (35-129) 07/24/21 08:45 Troponin T < 0.010 ng/mL (0.00-0.029) 07/24/21 08:45 NT-Pro-B Natriuret Pep 5505 pg/mL (0-900) H 07/24/21 08:45 Total Protein 6.1 g/dL (6.3-8.2) L 07/24/21 08:45 Albumin 3.8 g/dL (3.9-5) L 07/24/21 08:45 Albumin/Globulin Ratio 1.7 % 07/24/21 08:45 Lipase 16 units/L (13-60) 07/24/21 08:45 Assessment and Plan Assessment and plan: 60 yo with CP Acute on chronic systolic heart failure Ischemic cardiomyopathy with EF 15% CAD s/p CABG. C 11/11/19 revealed severe [place] vessel CAD with patent CRISTOBAL to LAD with diffuse distal LAD disease, patent HYMAN to OM with 100% occulsion of OM distal to graft, patent radial grafts to PDA and diagonal. Htn 07/24/21. Telemetry. Cardiac work up. Cardiology consulted. F/U EKGs and enzymes.
[2021-07-24] MEDS ORDERED: NITROGLYCERIN 0.4 MG TAB SUBL SL PRN (15:00)
[2021-07-24] MEDS ORDERED: MORPHINE 2 MG/1 ML INJ IV PRN (15:00)
[2021-07-24] MEDS ORDERED: ASPIRIN 325 MG TAB PO NR (15:00)
[2021-07-24] MEDS ORDERED: traMADol 50 MG TAB PO PRN (15:00)
[2021-07-24 15:49] LABS: Basophils # (Auto) 0.1 K/mm3 (0.0-0.1); Basophils % (Auto) 1.9 % (0.0-1.8); Eosinophils % (Auto) 0.8 % (0.0-4.3); Hematocrit 33.4 % (30.3-42.9); Hemoglobin 10.8 gm/dl (10.1-14.3); Lymphocytes # (Auto) 1.9 K/mm3 (1.2-5.4); Lymphocytes % (Auto) 31.3 % (13.4-35.0); Mean Corpuscular HGB Conc 32 % (30-34); Mean Corpuscular Volume 80 fl (79-97); Monocytes # (Auto) 0.3 K/mm3 (0.0-0.8); Monocytes % (Auto) 4.4 % (0.0-7.3); Platelet Count 190 K/mm3 (140-440); Red Cell Distribution Width 16.2 % (13.2-15.2)
[2021-07-24 16:09] LABS: Calcium 8.9 mg/dL (8.4-10.2)
[2021-07-25] MEDS ORDERED: LEVOTHYROXINE 100 MCG TAB PO SCH (06:00)
[2021-07-25] MEDS ORDERED: NON-FORMULARY EACH (Lisinopril [Zestril Tab] 2.5 MG Tablet) PO SCH (10:00)
--- NOTE | 2021-07-25 10:44 | Discharge Summary ---
Providers - Providers Date of Admission: 07/24/21 14:04 Date of discharge: 07/25/21 Attending physician: LIOR DEL ROSARIO 07/24/21 Consult to Cardiac Rehabilitation [CONS] Routine Reason For Exam: Phase I 07/24/21 14:04 Consult to Cardiology [CONS] Routine Consulting Provider: DENISE ARAIZA Reason For Exam: CP Primary care physician: FARSHAD SIFUENTES Hospitalization Reason for admission: Chest pain Condition: Stable Hospital course: This is a 60 yo female with hx of CHF, CVA, hypothyroidism, CAD s/p CABG who presented with chest pain and lower back pain occurring 2 days prior to admission. The patient was placed on the chest pain protocol and found to have cardiac isoenzymes that were negative. On physical exam, patient's pain was reproducible with palpation to the right anterior chest wall. Patient reports that she is completely pain-free at present and would like to go home. I discussed the case with cardiology (Dr. Araiza) who reported that there was no recommendation for any intervention and that the patient could follow-up in the office. Chest x-ray was found to be negative with no evidence of pulmonary edema or any other abnormalities. Patient is felt to have received maximal hospital benefit and will be discharged home. Dedicated discharge time 32 minutes Disposition: 01 HOME / SELF CARE / HOMELESS Final Discharge Diagnosis (Prints w/discharge instructions): Costochondritis. chronic heart failure, compensated. History of CVA. CAD status post CABG. Hypothyroidism Core Measure Documentation - Palliative Care Palliative Care/ Comfort Measures: Not Applicable - Core Measures Any of the following diagnoses?: none Exam - Constitutional Vitals: Temp Pulse Resp BP Pulse Ox 98.0 F 58 L 18 159/96 95 07/25/21 07:42 07/25/21 07:42 07/25/21 07:42 07/25/21 07:42 07/25/21 07:42 General appearance: Present: no acute distress, well-nourished - EENT Eyes: Present: PERRL ENT: hearing intact, clear oral mucosa - Neck Neck: Present: supple, normal ROM - Respiratory Respiratory effort: normal Respiratory: bilateral: CTA - Cardiovascular Heart Sounds: Present: S1 & S2. Absent: rub, click - Extremities Extremities: pulses symmetrical, No edema Peripheral Pulses: within normal limits - Abdominal General gastrointestinal: Present: soft, non-tender, non-distended, normal bowel sounds Female genitourinary: Present: normal - Integumentary Integumentary: Present: clear, warm, dry - Musculoskeletal Musculoskeletal: gait normal, strength equal bilaterally - Psychiatric Psychiatric: appropriate mood/affect, intact judgment & insight - Neurologic Neurologic: CNII-XII intact, moves all extremities Plan Activity: advance as tolerated Weight Bearing Status: Weight Bear as Tolerated Diet: low fat, low cholesterol, low salt Follow up with: FARSHAD SIFUENTES MD [Primary Care Provider] - 3-5 Days Prescriptions: Aspirin [Aspirin BABY CHEW TAB] 81 mg PO DAILY #30 tab Furosemide [Lasix TAB] 40 mg PO QDAY #30 tablet AtorvaSTATin [Lipitor] 40 mg PO QHS #30 tablet Metoprolol Xl [Metoprolol SUCCINATE ER TAB] 25 mg PO QDAY #30 tablet Nitroglycerin [Nitrostat] 0.4 mg SL Q5M PRN #30 tablet PRN Reason: Chest Pain Pantoprazole [Protonix TAB] 40 mg PO QDAC #30 tablet Levothyroxine [Synthroid] 100 mcg PO QDAY #30 tab Lisinopril [Zestril TAB] 2.5 mg PO QDAY #30 tab
[2021-07-25] MEDS: FUROSEMIDE 40 MG TAB PO SCH ×2 (11:12→11:50)
[2021-07-25] MEDS: METOPROLOL SUCCINATE XL 25 MG TAB PO SCH ×2 (11:12→11:52)
[2021-07-25] MEDS: PANTOPRAZOLE 40 MG TAB PO SCH ×2 (11:12→11:51)
[2021-07-25] MEDS: LISINOPRIL 5 MG TAB PO SCH ×2 (11:12→11:50)
--- NOTE | 2021-07-25 12:29 | Consultation ---
History of Present Illness Consult date: 07/25/21 Consult reason: chest pain History of present illness: The patient is a 60-year-old man Past History Past Medical History: hypertension, hyperlipidemia Medications and Allergies Allergies Allergy/AdvReac Type Severity Reaction Status Date / Time No Known Allergies Allergy Verified 07/24/21 13:55 Home Medications Medication Instructions Recorded Confirmed Last Taken Type Aspirin [Aspirin BABY CHEW TAB] 81 mg PO DAILY #30 tab 07/25/21 Unknown Rx AtorvaSTATin [Lipitor] 40 mg PO QHS #30 tablet 07/25/21 Unknown Rx Furosemide [Lasix TAB] 40 mg PO QDAY #30 tablet 07/25/21 Unknown Rx Levothyroxine [Synthroid] 100 mcg PO QDAY #30 tab 07/25/21 Unknown Rx Lisinopril [Zestril TAB] 2.5 mg PO QDAY #30 tab 07/25/21 Unknown Rx Metoprolol Xl [Metoprolol 25 mg PO QDAY #30 tablet 07/25/21 Unknown Rx SUCCINATE ER TAB] Nitroglycerin [Nitrostat] 0.4 mg SL Q5M PRN #30 tablet 07/25/21 Unknown Rx Pantoprazole [Protonix TAB] 40 mg PO QDAC #30 tablet 07/25/21 Unknown Rx lisinopriL [Zestril TAB] 2.5 mg PO QDAY tablet 07/25/21 Unknown Rx Active Meds: Active Medications Acetaminophen (Acetaminophen 325 Mg Tab) 650 mg PO Q6H PRN PRN Reason: Pain, Mild (1-3) Atorvastatin Calcium (Atorvastatin 40 Mg Tab) 40 mg PO QHS [facility] Last Admin: 07/24/21 21:49 Dose: Not Given Furosemide (Furosemide 40 Mg Tab) 40 mg PO QDAY [facility] Last Admin: 07/25/21 11:50 Dose: 40 mg Levothyroxine Sodium (Levothyroxine 100 Mcg Tab) 100 mcg PO DAILY@0600 [facility] Last Admin: 07/25/21 05:04 Dose: Not Given Lisinopril (Lisinopril 5 Mg Tab) 2.5 mg PO QDAY [facility] Last Admin: 07/25/21 11:50 Dose: 2.5 mg Metoprolol Succinate (Metoprolol Succinate Xl 25 Mg Tab) 25 mg PO QDAY [facility] Last Admin: 07/25/21 11:52 Dose: 25 mg Morphine Sulfate (Morphine 2 Mg/1 Ml Inj) 2 mg IV Q4H PRN PRN Reason: CHEST PAIN UNRELIEVED BY NTG Last Admin: 07/24/21 15:35 Dose: 2 mg Nitroglycerin (Nitroglycerin 0.4 Mg Tab Subl) 0.4 mg SL Q5M PRN PRN Reason: Chest Pain Last Admin: 07/24/21 15:34 Dose: 0.4 mg Pantoprazole Sodium (Pantoprazole 40 Mg Tab) 40 mg PO QDAC [facility] Last Admin: 07/25/21 11:51 Dose: 40 mg Sodium Chloride (Sodium Chloride 0.9% 10 Ml Flush Syringe) 10 ml IV PRN PRN PRN Reason: LINE FLUSH Tramadol HCl (Tramadol 50 Mg Tab) 50 mg PO Q6H PRN PRN Reason: Pain, Moderate (4-6) Physical Examination Vital Signs Temp Pulse Resp BP Pulse Ox 97.9 F 78 18 185/107 97 07/24/21 07:31 07/24/21 07:31 07/24/21 07:31 07/24/21 07:31 07/24/21 07:31 Results 07/24/21 15:35 07/24/21 15:35 CBC 07/24/21 Range/Units 15:35 WBC 5.9 (4.5-11.0) K/mm3 RBC 4.20 (3.65-5.03) M/mm3 Hgb 10.8 (10.1-14.3) gm/dl Hct 33.4 (30.3-42.9) % Plt Count 190 (140-440) K/mm3 Lymph # (Auto) 1.9 (1.2-5.4) K/mm3 [place] # (Auto) 0.3 (0.0-0.8) K/mm3 Eos # (Auto) 0.0 (0.0-0.4) K/mm3 Baso # (Auto) 0.1 (0.0-0.1) K/mm3 Comprehensive Metabolic Panel 07/24/21 Range/Units 15:35 Sodium 139 (137-145) mmol/L Potassium 4.7 (3.6-5.0) mmol/L Chloride 104.9 (98-107) mmol/L Carbon Dioxide 23 (22-30) mmol/L BUN 20 H (7-17) mg/dL Creatinine 1.2 (0.6-1.2) mg/dL Glucose 115 H (65-100) mg/dL Calcium 8.9 (8.4-10.2) mg/dL
[2021-07-25 12:31] VITALS: BP 149/81
--- NOTE | 2021-07-25 12:31 | Event Note ---
Date: 07/25/21 Patient was discharged home by the internal medicine service before the patient was seen by us, and cardiology consultation could be completed. You may have the patient follow-up up as outpatient, or reconsult if necessary for inpatient cardiac assessment.
--- NOTE | 2021-07-26 17:57 | Electrocardiograph Report ---
[facility] Test Date: 2021-07-25 Test Time: 07:52:53 Pat Name: JESUS CAMERON Department: Room: A484 1 Gender: F Vendor Specialist: PETER : [id number] Requested By: LIOR DEL ROSARIO Order Number: [id number] Reading MD: Michael Durbin Measurements Intervals [place] Rate: 53 P: -30 HI: 183 QRS: -2 QRSD: 108 T: 217 QT: 524 QTc: 495 Interpretive Statements Sinus rhythm Inferior infarct, old Nonspecific T abnormalities, lateral leads Compared to ECG 07/24/2021 07:33:54 No significant changes Electronically Signed On 07-26-2021 17:57:16 EDT by Michael Durbin
== END 2021-07-25 14:50 | disposition home or self-care (01) ==
LOC: ED 07:29 → 4A 14:04
PROVIDERS: ADMIT Hospitalist; ATTEND Hospitalist
DX: M94.0 Chondrocostal junction syndrome [Tietze] (principal); I11.0 Hypertensive heart disease with heart failure; I50.23 Acute on chronic systolic (congestive) heart failure; I25.10 Atherosclerotic heart disease of native coronary artery without angina pectoris; I25.5 Ischemic cardiomyopathy; I24.9 Acute ischemic heart disease, unspecified; E03.9 Hypothyroidism, unspecified; M54.50 Low back pain, unspecified; Z95.1 Presence of aortocoronary bypass graft; Z86.73 Personal history of transient ischemic attack (TIA), and cerebral infarction without residual deficits; Z79.82 Long term (current) use of aspirin; Z79.899 Other long term (current) drug therapy; Z98.890 Other specified postprocedural states
CPT/HCPCS: 36415; 71045; 80053; 83690; 83880; 84484; 85025; 93005; 96374; 96375; 99285; G0378; J2270; J2405; 80048

== ENCOUNTER 2021-12-04 10:03 | Emergency (ER) | payer MEDICARE | END 2021-12-04 10:08 | disposition left against medical advice (07) | LOC: ED 10:03 | DX: R06.02 Shortness of breath (principal); R11.10 Vomiting, unspecified; Z53.21 Procedure and treatment not carried out due to patient leaving prior to being seen by health care provider ==